=== PATIENT | male | born 1960 | race Caucasian/White ===

== ENCOUNTER 2023-09-08 16:18 | Observation (INO) ==
--- NOTE | 2023-09-08 16:29 | ED Triage Note ---
Date of Service September 08, 2023 Provider in Triage Author: Brody Paulino History of Present Illness This patient was briefly evaluated while in triage. An abbreviated physical exam was performed. This patient is a 63-year-old Male who presents to the ED for evaluation of hard time with vision. Hard time focusing the eyes. Left eye might have a litte pressure. Symptoms since about 3:24pm. Vision seems perfect, just cant focus. Had dizziness and left facial symptoms. Things seem to be improving. Fam hx of stroke. Physical Exam Limited Triage Exam: VITALS: Vitals are noted on the nurse's note and reviewed by myself. Vital si gns stable. GENERAL: Well-developed, well-nourished, white male HEART: Regular rate and rhythm without murmurs gallops or rubs. LUNGS: Clear to auscultation bilaterally without wheezes, rales or rhonchi. No retractions or accessory muscle use. NEURO: Patient was alert and acting questions appropriately Initial orders for labs and / or imaging were placed and patient was placed in the waiting area until a bed is available. Please see further documentation for the full ED course. MDM / Impression Impression Impression: Stroke-like symptom, Diplopia
[2023-09-08] MEDS ORDERED: OPTIRAY 320 125ml IV ONE (16:41)
--- NOTE | 2023-09-08 16:54 | CT Scan Report ---
CT OF THE HEAD WITHOUT CONTRAST CLINICAL HISTORY: neuro deficit, acute stroke suspected COMPARISON STUDY: No previous studies for comparison. TECHNIQUE: Helical axial images of the head were obtained without IV contrast. Automated exposure con trol was utilized for the study. A dose lowering technique was utilized adhering to the principles o f ALARA. FINDINGS: No acute intracranial hemorrhage, midline shift or mass effect is present. The ventricular system is unremarkable. The basal cisterns are patent. No extra-axial collections are present. There are no findings to suggest acute dural sinus thrombosis or acute territorial infarct. No significant calvarial abnormalities are present. Visualized portions of the sinuses and mastoid air cells are homar ar. IMPRESSION: No acute intracranial findings. ACT 112: Negative or not required by law. Electronically signed by: Ahsan Patel M.D. 09/08/2023 4:53 PM
--- NOTE | 2023-09-08 16:57 | CT Scan Report ---
CT ANGIOGRAPHY OF THE NECK WITH CONTRAST CLINICAL HISTORY: neuro deficit, acute stroke suspected COMPARISON STUDY: No previous studies for comparison. Technique: CT angiography of the carotid and vertebral arteries was obtained using Optiray and 3D rec onstruction on an independent workstation. NASCET criteria was utilized. Automated exposure control was utilized for the study. A dose lowering technique was utilized adhering to the principles of ALA RA. CT DOSE: 1375.24 mGy.cm Findings: Visualized portions of the lung apices are unremarkable. There is no cervical lymphadenopat hy. No cervical spine fractures are present. The bilateral common carotid, cervical internal carotid and vertebral arteries are patent. There is mild plaque within the proximal left internal carotid art daisy without stenosis. There is no dissection or aneurysm within the neck. CTA of the head will be rep orted separately. IMPRESSION: No stenosis or dissection within the bilateral common carotid, cervical internal carotid or vertebral arteries. ACT 112: Negative or not required by law. Electronically signed by: Ahsan Patel M.D. 09/08/2023 4:55 PM
--- NOTE | 2023-09-08 17:00 | CT Scan Report ---
CTA ANGIOGRAPHY OF THE HEAD CLINICAL HISTORY: neuro deficit, acute stroke suspected COMPARISON STUDY: No previous studies for comparison. TECHNIQUE: Helical axial images of the head were obtained following uneventful intravenous administr ation of 115 cc of Optiray. Sagittal and coronal reconstructions were viewed as well as maximal inten sity projections on an independent 3-D workstation. Automated exposure control was utilized for the study. A dose lowering technique was utilized adhering to the principles of ALARA. FINDINGS: The bilateral M1, M2, A1 and A2 segments are patent. No vessel occlusion is identified. Pos terior circulation is intact. There are bilateral posterior communicating arteries. Left P1 segment i s diminutive on a congenital basis. Please note that the head CT will be reported separately. Major d ural sinuses appear patent. There is no intracranial aneurysm or dissection. IMPRESSION: No large vessel occlusion. No intracranial aneurysm. ACT 112: Negative or not required by law. Electronically signed by: Ahsan Patel M.D. 09/08/2023 4:57 PM
--- NOTE | 2023-09-08 17:00 | Emergency Department Note ---
Impression & Plan Stroke-like symptom, Diplopia ED Provider Note NAME: GUY PEÑA AGE: 63 SEX: M : 1960 ARRIVES VIA: Walk-In INFORMANT: Patient, ED PROVIDER(S): Mateusz Hair DO CHIEF COMPLAINT: Diplopia HPI: The patient is a 63-year-old male who was made a stroke alert in triage. The patient arrived at the emergency department for an evaluation of diplopia. The patient came in through triage. His significant other states that she did find out about the symptoms and they started at approximately 3:20 PM the patient describes double vision when he looks through both eyes. He describes pressure behind his left eye but no specific headache. He states he feels dizzy and somewhat off balance. The patient states he had a similar sewed 6 months ago. It lasted only seconds and the patient felt better. ROS: See above HPI for pertinent positives & negatives. A total of 10 systems reviewed and were otherwise negative. PAST MEDICAL HISTORY: See Below PAST SURGICAL HISTORY: See Below FAMILY HISTORY: See Below SOCIAL HISTORY: See Below HOME MEDICATIONS: See Below ALLERGIES: See Below VITALS: See Below PHYSICAL EXAMINATION: GENERAL: Patient is awake alert in no acute distress patient is resting comfortably and showing no signs of anxiety EYES: The conjunctivae are clear. The pupils are round and reactive. Extraocular muscles are intact. EARS, NOSE, MOUTH AND THROAT: The nose is without any evidence of any deformity. NECK: The neck is nontender and supple. RESPIRATORY: Normal respiratory effort is noted there is no evidence of wheezing rhonchi or rales CARDIOVASCULAR: Regular rate and rhythm noted there no murmurs rubs or gallops normal S1 normal S2. GASTROINTESTINAL: The abdomen is soft. Abdomen is nontender. MUSCULOSKELETAL/EXTREMITIES: There is no evidence of gross deformity full range of motion is noted in the hips and shoulders. SKIN: There is no obvious evidence of any rash. There are no petechiae, pallor or cyanosis noted. NEUROLOGIC: Patient is awake alert and oriented x3 strength is symmetric patellar reflexes are 2+ bilaterally MEDICAL DECISION MAKING: The patient is a 63-year-old male who presented to the emergency department through triage. The patient was made a stroke alert prior to my evaluation. The patient had an acute onset of diplopia. He also had some degree of a headache behind his left eye. I discussed the patient's laboratory and radiographic studies with him. He was evaluated by the telestroke neurologist. At this time the patient does not appear to have criteria for TN K. He had improvement of his symptoms while he was in the emergency department. I discussed the patient's condition with the telestroke neurologist after her evaluation. At this time it does appear the patient may require further workup. I discussed the patient's condition with the on-call [facility] hospitalist. The patient was treated with aspirin in the emergency department. Triage Nursing notes reviewed. Prior medical records reviewed Vital Signs: reviewed and remarkable for no significant abnormalities Differential diagnosis: Conjunctivitis, trauma, corneal abrasion, hyphema, glaucoma, iritis, corneal ulcer, dendrite, CRAO, CRVO, vitreous detachment, retinal detachment, as well as other pathologies. ER treatment provided: See below Diagnostics interpreted by me: ECG: EKG was obtained in the emergency department. My interpretation is normal sinus rhythm at 75 bpm. There is no ectopy. There is no acute ST segment abnormalities noted. Previous tracing was not available. Cardiac Monitoring: An order was placed for continuous cardiac monitoring. The monitor shows a rate of 65 bpm with sinus rhythm. Laboratory studies: As stated above and show below. Imaging studies: See below. Radiographic imaging was reviewed by myself Consultation(s): I discussed this case with Dr. Maya [facility] COURSE: Procedures: none Critical Care: I have personally spent greater than 40 minutes of critical care time in the direct management of this patient. This includes bedside care, interpretation of diagnostic studies, and testing, discussion with consultants, patient, and family members, and other required patient management activities. This 40 minutes is in excess of all separately billable procedures. Past Med/Surg History Medical History ADHD Allergies Allergies Allergy/AdvReac Type Severity Reaction Status Date / Time No Known Allergies Allergy Verified 09/08/23 16:57 Home Meds Home Medications Medication Instructions Recorded Confirmed aspirin 81 mg tablet,delayed 81 mg PO DAILY 09/08/23 09/08/23 release buspirone 30 mg tablet 30 mg PO BID 09/08/23 09/08/23 dextroamphetamine-amphetamine 30 30 mg PO BID 09/08/23 09/08/23 mg tablet (Adderall) multivitamin 1 tab PO DAILY 09/08/23 09/08/23 Results & Data (ED) Vital Signs Vital Signs - 24 hr 09/08/23 16:25 09/08/23 16:45 09/08/23 17:00 Temperature 36.8 C Temperature Source Temporal Artery Scan Pulse Rate 79 77 71 Pulse Rate from SpO2 Sensor Respiratory Rate 18 16 23 Blood Pressure 127/83 133/87 120/79 Blood Pressure Mean 97 102 92 Pulse Oximetry 99 100 100 Oxygen Delivery Method Room Air Room Air Room Air Sepsis Recent Fever Within 48 Hours No Sepsis New/Unexplained Change in Mental Status No Sepsis Action Taken by Nursing No Action Required 09/08/23 17:01 09/08/23 17:30 09/08/23 18:06 Temperature Temperature Source Pulse Rate 73 66 72 Pulse Rate from SpO2 Sensor Respiratory Rate 18 16 Blood Pressure 129/85 Blood Pressure Mean 99 Pulse Oximetry 100 Oxygen Delivery Method Room Air Sepsis Recent Fever Within 48 Hours Sepsis New/Unexplained Change in Mental Status Sepsis Action Taken by Nursing 09/08/23 18:09 09/08/23 18:09 09/08/23 18:10 Temperature Temperature Source Pulse Rate 60 62 Pulse Rate from SpO2 Sensor 64 62 Respiratory Rate 22 16 Blood Pressure 121/87 Blood Pressure Mean 90 Pulse Oximetry 96 100 Oxygen Delivery Method Sepsis Recent Fever Within 48 Hours Sepsis New/Unexplained Change in Mental Status Sepsis Action Taken by Nursing 09/08/23 18:20 09/08/23 18:30 09/08/23 18:30 Temperature Temperature Source Pulse Rate 67 66 Pulse Rate from SpO2 Sensor 67 Respiratory Rate 18 15 Blood Pressure 133/87 Blood Pressure Mean 92 Pulse Oximetry 97 Oxygen Delivery Method Sepsis Recent Fever Within 48 Hours Sepsis New/Unexplained Change in Mental Status Sepsis Action Taken by Nursing 09/08/23 18:40 09/08/23 18:50 Temperature Temperature Source Pulse Rate 65 65 Pulse Rate from SpO2 Sensor 64 65 Respiratory Rate 18 16 Blood Pressure Blood Pressure Mean Pulse Oximetry 100 100 Oxygen Delivery Method Sepsis Recent Fever Within 48 Hours Sepsis New/Unexplained Change in Mental Status Sepsis Action Taken by Alf Medications Current Medication List: was personally reviewed by me Laboratory Data Attestation: I reviewed the patient's lab results. 09/08/23 16:50 09/08/23 16:50 Lab Results 09/08/23 09/08/23 Range/Units 16:48 16:50 WBC 4.21 L (4.8-10.8) K/ul RBC 4.16 L (4.70-6.10) M/uL Hgb 12.9 L (14.0-18.0) g/dl Hct 39.1 L (42.0-52.0) % MCV 94.0 (80.0-100.0) fL MCH 31.0 (25.0-34.0) pg MCHC 33.0 (32.0-36.0) g/dL RDW Std Deviation 43.2 (36.4-46.3) fL RDW Coeff of Kennedy 12.4 (11.5-14.5) % Plt Count 194 (130-400) K/uL MPV 10.3 (9.4-12.4) fL Immature Gran % (Auto) 0.2 % Neut % (Auto) 45.8 % Lymph % (Auto) 38.5 % Frio % (Auto) 12.6 % Eos % (Auto) 1.9 % Baso % (Auto) 1.0 % Neut # (Auto) 1.93 (1.40-6.50) K/uL Lymph # (Auto) 1.62 (1.20-3.40) K/uL Frio # (Auto) 0.53 (0.11-0.59) K/uL Eos # (Auto) 0.08 (0.00-0.50) K/uL Baso # (Auto) 0.04 (0.00-0.20) K/uL Immature Gran # (Auto) 0.01 (0.01-0.20) K/uL PT 11.9 (9.0-12.0) Seconds INR 1.1 (0.9-1.1) APTT 27 (21-31) Seconds PTT Ratio 1.0 Sodium 137 (136-145) mmol/L Potassium 4.2 (3.5-5.1) mmol/L Chloride 105 (98-107) mmol/L Carbon Dioxide 28 (21-32) mmol/L Anion Gap 4 (3-11) BUN 18 (6-23) mg/dl Creatinine 0.95 (0.6-1.4) mg/dl Est Cr Clr Drug Dosing 80.0 ml/min Est GFR ( Amer) 97.0 ml/min Est GFR (Non-Af Amer) 83.7 ml/min BUN/Creatinine Ratio 18.9 (10-20) Glucose 97 (70-99(Fasting)) mg/dl POC Glucose 95 (70-99) mg/dl Calcium 9.0 (8.6-10.3) mg/dl Magnesium 2.0 (1.7-2.4) mg/dl Total Bilirubin 0.3 (0.2-1.0) mg/dl AST 16 (13-39) U/L ALT 18 (7-52) U/L Alkaline Phosphatase 60 (34-104) U/L Troponin I High Sens 2.6 (0-20) pg/ml Total Protein 6.1 (6.0-8.3) gm/dl Albumin 3.9 (3.4-5.0) gm/dl Globulin 2.2 L (2.5-4.0) gm/dl Albumin/Globulin Ratio 1.8 (0.9-2) Blood Type O Positive Antibody Screen NEGATIVE Administered Medications Discontinued Medications Aspirin (Aspirin Chew 324 Mg) 240 mg PO NOW STA Stop: 09/08/23 18:20 Last Admin: 09/08/23 18:33 Dose: 240 mg Documented By: HAIR Ioversol (Optiray 320 125ml) 115 ml IV ONCE ONE Stop: 09/08/23 16:42 Last Admin: 09/08/23 16:42 Dose: 115 ml Documented By: STEVE Imaging Data Attestation: I personally reviewed and interpreted this imaging study as follows: My Impression: CT of the brain was obtained in the emergency department. My interpretation is no intracranial hemorrhage or mass effect, final report below. 1 view chest x-ray was obtained in the emergency department. My interpretation is no free air or definite infiltrate, final report below. Radiologist's Impression: Head CT 09/08/23 16:30 CT OF THE HEAD WITHOUT CONTRAST CLINICAL HISTORY: neuro deficit, acute stroke suspected COMPARISON STUDY: No previous studies for comparison. TECHNIQUE: Helical axial images of the head were obtained without IV contrast. Automated exposure control was utilized for the study. A dose lowering technique was utilized adhering to the principles of ALARA. FINDINGS: No acute intracranial hemorrhage, midline shift or mass effect is present. The ventricular system is unremarkable. The basal cisterns are patent. No extra-axial collections are present. There are no findings to suggest acute dural sinus thrombosis or acute territorial infarct. No significant calvarial abnormalities are present. Visualized portions of the sinuses and mastoid air cells are clear. IMPRESSION: No acute intracranial findings. ACT 112: Negative or not required by law. Electronically signed by: Ahsan Patel M.D. 09/08/2023 4:53 PM Head CTA 09/08/23 16:30 CTA ANGIOGRAPHY OF THE HEAD CLINICAL HISTORY: neuro deficit, acute stroke suspected COMPARISON STUDY: No previous studies for comparison. TECHNIQUE: Helical axial images of the head were obtained following uneventful intravenous administration of 115 cc of Optiray. Sagittal and coronal reconstructions were viewed as well as maximal intensity projections on an independent 3-D workstation. Automated exposure control was utilized for the study. A dose lowering technique was utilized adhering to the principles of ALARA. FINDINGS: The bilateral M1, M2, A1 and A2 segments are patent. No vessel occlusion is identified. Posterior circulation is intact. There are bilateral posterior communicating arteries. Left P1 segment is diminutive on a congenital basis. Please note that the head CT will be reported separately. Major dural sinuses appear patent. There is no intracranial aneurysm or dissection. IMPRESSION: No large vessel occlusion. No intracranial aneurysm. ACT 112: Negative or not required by law. Electronically signed by: Ahsan Patel M.D. 09/08/2023 4:57 PM Neck CTA 09/08/23 16:30 CT ANGIOGRAPHY OF THE NECK WITH CONTRAST CLINICAL HISTORY: neuro deficit, acute stroke suspected COMPARISON STUDY: No previous studies for comparison. Technique: CT angiography of the carotid and vertebral arteries was obtained using Optiray and 3D reconstruction on an independent workstation. NASCET criteria was utilized. Automated exposure control was utilized for the study. A dose lowering technique was utilized adhering to the principles of ALARA. CT DOSE: 1375.24 mGy.cm Findings: Visualized portions of the lung apices are unremarkable. There is no cervical lymphadenopathy. No cervical spine fractures are present. The bilateral common carotid, cervical internal carotid and vertebral arteries are patent. There is mild plaque within the proximal left internal carotid artery without stenosis. There is no dissection or aneurysm within the neck. CTA of the head will be reported separately. IMPRESSION: No stenosis or dissection within the bilateral common carotid, cervical internal carotid or vertebral arteries. ACT 112: Negative or not required by law. Electronically signed by: Ahsan Patel M.D. 09/08/2023 4:55 PM Discharge Plan Visit Data Chief Complaint: TIA Symptoms ED Provider: Mateusz Hair Discharge Problem: Stroke-like symptom, Diplopia Patient Disposition: Being Evaluated by Hospitalist Forms Stand Alone Forms: [facility] Prescriptions Prescriptions: No Action multivitamin Tablet 1 tab PO DAILY aspirin 81 mg Tablet,Delayed Release (Dr/Ec) 81 mg PO DAILY dextroamphetamine-amphetamine [Adderall] 30 mg Tablet 30 mg PO BID Rx Instructions: administer doses at least 4-6 hours apart buspirone [BuSpar] 30 mg Tablet 30 mg PO BID Referrals Referrals: PCP,NO [Primary Care Provider] -
[2023-09-08 17:05] LABS: Basophils # (auto) 0.04 K/uL (0.00-0.20); Eosinophils # (auto) 0.08 K/uL (0.00-0.50); Eosinophils % (auto) 1.9 %; Hematocrit (blood only) 39.1 % (42.0-52.0); Hemoglobin 12.9 g/dl (14.0-18.0); Immature Granulocytes # (auto) 0.01 K/uL (0.01-0.20); Immature Granulocytes % (auto) 0.2 %; Lymphocytes # (auto) 1.62 K/uL (1.20-3.40); Lymphocytes % (auto) 38.5 %; Mean Platelet Volume 10.3 fL (9.4-12.4); Monocytes # (auto) 0.53 K/uL (0.11-0.59); Monocytes % (auto) 12.6 %; Neutrophils # (auto) 1.93 K/uL (1.40-6.50); Neutrophils % (auto) 45.8 %; Platelet Count 194 K/uL (130-400); RDW Coefficient of Variation 12.4 % (11.5-14.5); RDW Standard Deviation 43.2 fL (36.4-46.3); Red Blood Count 4.16 M/uL (4.70-6.10); White Blood Count 4.21 K/ul (4.8-10.8)
[2023-09-08 17:21] LABS: Albumin Globulin Ratio 1.8 (0.9-2); Albumin Level 3.9 gm/dl (3.4-5.0); BUN Creatinine Ratio 18.9 (10-20); Bilirubin,Total 0.3 mg/dl (0.2-1.0); Est GFR (Non-African American) 83.7 ml/min; Globulin 2.2 gm/dl (2.5-4.0); Potassium 4.2 mmol/L (3.5-5.1); Total Protein 6.1 gm/dl (6.0-8.3)
[2023-09-08 17:27] LABS: Troponin I High Sensitivity 2.6 pg/ml (0-20)
[2023-09-08 18:04] LABS: INR 1.1 (0.9-1.1); Partial Thromboplastin Time 27 Seconds (21-31); Prothrombin Time 11.9 Seconds (9.0-12.0)
[2023-09-08] MEDS ORDERED: ASPIRIN CHEW 324 MG PO STA (18:19)
--- NOTE | 2023-09-08 20:04 | History & Physical Report ---
Date of Service September 08, 2023 Assessment & Plan (1) TIA (transient ischemic attack): Plan: Patient had a recurrence of diplopia. He is not from the area and will follow- up in his hometown. He notes a strong family history of cerebrovascular disease. He himself however does not feel he is elevated risk factors such as diabetes or elevation of his cholesterol. He quit smoking many years ago when he got . But he does have a history of tobacco use in the past Consideration of TIA we will overlap Plavix with aspirin for 21 days. Telestroke may have not realize the patient is on a every day aspirin. Lipid panel will be checked in the morning with A1c and he will be offered atorvastatin. MRI is ordered for overnight Echocardiogram with bubble study. Patient was able to pass a bedside swallow examination for me and diet will be administered. He was queried whether this could be atypical migraine does not feel he had any other issues and has never had history of headaches (2) Anxiety: Plan: Patient on BuSpar 30 twice daily this will be continued. Plan DVT prevention is Lovenox therapy. History of Present Illness Primary Care Provider: NO PCP 63-year-old male driving from [place] through [facility] developed diplopia while driving. Reportedly 6 months prior to similar episode while reading or did diplopia lasted about 30 seconds and then resolved. Patient recently saw his nanofabrication specialist for correction of his reading glasses did not mention a diplopia at that time. Patient has complete resolution of his symptoms in the emergency department. There are no other associated symptoms except for perhaps some altered sensation to the left side of his face. He is dry metacarpal this happened he needed to window shade ring coverer to the road and changed to have his drive. She did not notice any facial drooping or dragging his arm she did not notice any speech related issues but said he may have been slightly confused He is not a history of any migraines. Stroke evaluation in the ER did not recommend any thrombolytic agents. The patient did have relatively unremarkable CT head and CT angiography. Recommendations for antiplatelet agents continue stroke workup including echo with bubble study and have an outpatient ophthalmologic examination if this is all negative. Patient is eddies explained to them and seem to be happy with those results Allergies Allergy/AdvReac Type Severity Reaction Status Date / Time No Known Allergies Allergy Verified 09/08/23 16:57 Home Medications Medication Instructions Recorded Confirmed Type aspirin 81 mg tablet,delayed 81 mg PO DAILY 09/08/23 09/08/23 History release buspirone 30 mg tablet 30 mg PO BID 09/08/23 09/08/23 History dextroamphetamine-amphetamine 30 30 mg PO BID 09/08/23 09/08/23 History mg tablet (Adderall) multivitamin 1 tab PO DAILY 09/08/23 09/08/23 History Past Med/Surg History Medical History ADHD Review of Systems Review of Systems: Mild distress and fatigue no headache, visual changes are described as double vision's like his eyes were crossed but his eyes were not crossed according to his no speech or swallowing issues no chest pain, pressure or palpitations no shortness of breath, cough or wheezes no abdominal pain, nausea or vomiting, diarrhea or constipation no dysuria, hematuria or frequency no focal joint pain or swelling no back pain, CVA tenderness or radicular pain no bruising, bleeding or rashes no focal signs of weakness or numbness or altered sensation no complaints of anxiety or depression.. Physical Exam Physical Exam: The patient appeared well nourished and normally developed. Vital signs as documented. Head exam is normocephalic atraumatic Neck is without JVD, thyromegaly, or carotid bruits. Lungs are clear to auscultation, no focal loss of breath sounds Cardiac exam, Rhythm is regular.. No murmurs, rubs or gallops. Abdominal exam reveals normal bowel sounds, soft non tender, no masses Extremities are nonedematous and both pedal pulses are present Neurologic exam is alert and oriented, no focal loss of strength or sensation Symptoms had resolved upon time I evaluate the patient Skin is without bruises or rashes Psychologically is without concerns for anxiety or depression.. Results & Data Results & Data Vital Signs (Past 12 Hours) Vital Signs Temp Pulse Resp BP Pulse Ox O2 Del Method 09/08/23 18:50 65 16 100 09/08/23 18:40 65 18 100 09/08/23 18:30 66 15 09/08/23 18:30 133/87 09/08/23 18:20 67 18 97 09/08/23 18:10 62 16 100 09/08/23 18:09 60 22 96 09/08/23 18:09 121/87 09/08/23 18:06 72 16 09/08/23 17:30 66 18 129/85 100 Room Air 09/08/23 17:01 73 09/08/23 17:00 71 23 120/79 100 Room Air 09/08/23 16:45 77 16 133/87 100 Room Air 09/08/23 16:25 98.2 F 79 18 127/83 99 Room Air Laboratory Results Reviewed chemistry reviewed CBC reviewed results of CTA and CT head Code Status & VTE Plan VTE Prophylaxis Plan VTE Prophylaxis will be ordered: Yes PG Care Time/CCT Total # of Minutes Spent Total Time Spent with Patient: Total time spent is greater than 50% in coordination of care (as documented) at patient's floor/unit and/or counseling patient: Coding Level of Care Code 43473 INT INP/OBS CARE 2/55MIN Diagnoses TIA (transient ischemic attack) G45.9 Anxiety F41.9
[2023-09-08] MEDS ORDERED: ONDANSETRON INJ 2 MG/ML 2 ML VIAL IV PRN (21:03)
[2023-09-08] MEDS ORDERED: ALUMINUM/MAGNESIUM SUSP 30 ML UDC PO PRN (21:03)
[2023-09-08] MEDS ORDERED: ACETAMINOPHEN 325 MG TAB PO PRN (21:03)
[2023-09-08] MEDS ORDERED: CLOPIDOGREL BISULFATE 75 MG TAB PO ONE (21:03)
[2023-09-08] MEDS: busPIRone 15 MG TAB PO SCH (22:07)
[2023-09-08] MEDS: AMPHETAMINE ASP/SULF/DEXTRAMPH 10 MG TAB PO SCH (22:07)
[2023-09-09 04:29] LABS: Chol HDL Ratio 2.5 (0-5)
[2023-09-09 07:32] LABS: Estimated Average Glucose 117 mg/dl; Hemoglobin A1C 5.7 % (4.5-5.6)
[2023-09-09] MEDS: busPIRone 15 MG TAB PO SCH (08:23)
[2023-09-09] MEDS: AMPHETAMINE ASP/SULF/DEXTRAMPH 10 MG TAB PO SCH (08:23)
[2023-09-09] MEDS ORDERED: CLOPIDOGREL BISULFATE 75 MG TAB PO SCH (09:00)
[2023-09-09] MEDS ORDERED: ASPIRIN 81 MG ECTAB PO SCH (09:00)
[2023-09-09] MEDS ORDERED: ENOXAPARIN INJ 40 MG/0.4 ML SYR SQ SCH (09:00)
[2023-09-09] MEDS ORDERED: MULTIVITAMIN TAB PO SCH (09:00)
[2023-09-09] MEDS ORDERED: ATORVASTATIN 40 MG TAB PO SCH (09:00)
--- NOTE | 2023-09-09 10:26 | XCELERA ---
[id number] [id number]
--- NOTE | 2023-09-09 10:47 | Electrocardiogram Report ---
Test Reason : Blood Pressure : / mmHG Vent. Rate : 075 BPM Atrial Rate : 075 BPM P-R Int : 148 ms QRS Dur : 092 ms QT Int : 380 ms P-R-T Axes : 063 043 060 degrees QTc Int : 424 ms Normal sinus rhythm Normal ECG No previous ECGs available Confirmed by Mateusz Hines ([id number]) on 09/09/2023 10:46:57 AM Referred By: REFERRED SELF Confirmed By:Mateusz Hines
--- NOTE | 2023-09-09 12:38 | Magnetic Resonance Report ---
MRI OF THE BRAIN WITHOUT CONTRAST CLINICAL HISTORY: Diplopia. Evaluate for stroke. COMPARISON STUDY: Head CT and CTA of the head September 08, 2023. TECHNIQUE: Utilizing a 1.5 Glendy magnet and dedicated coil, multiplanar, multiecho imaging of the bra in was performed without IV contrast. FINDINGS: There are no foci of restricted diffusion to suggest acute infarct. No acute intracranial h emorrhage, midline shift or mass effect is present. Ventricular system is unremarkable. Basal cistern s are patent. There are no extra-axial collections. Flow-voids for the major intracranial vessels are present. No intracranial masses are identified on this unenhanced exam. No significant parenchymal s ignal abnormality is present. Calvarial signal is normal. No evidence for sinusitis. No mastoid fluid . IMPRESSION: No acute intracranial findings/ ACT 112: Negative or not required by law. Electronically signed by: Ahsan Patel M.D. 09/09/2023 12:36 PM
--- NOTE | 2023-09-09 14:34 | Discharge Summary ---
Date of Service September 09, 2023 Admission HPI Per Admitting Provider 63-year-old male driving from [place] through [facility] developed diplopia while driving. Reportedly 6 months prior to similar episode while reading or did diplopia lasted about 30 seconds and then resolved. Patient recently saw his histopathologist for correction of his reading glasses did not mention a diplopia at that time. Patient has complete resolution of his symptoms in the emergency department. There are no other associated symptoms except for perhaps some altered sensation to the left side of his face. He is dry metacarpal this happened he needed to lumber puller to the road and changed to have his drive. She did not notice any facial drooping or dragging his arm she did not notice any speech related issues but said he may have been slightly confused He is not a history of any migraines. Stroke evaluation in the ER did not recommend any thrombolytic agents. The patient did have relatively unremarkable CT head and CT angiography. Recommendations for antiplatelet agents continue stroke workup including echo with bubble study and have an outpatient ophthalmologic examination if this is all negative. Patient is eddies explained to them and seem to be happy with those results Admission Exam Per Admitting Provider The patient appeared well nourished and normally developed. Vital signs as documented. Head exam is normocephalic atraumatic Neck is without JVD, thyromegaly, or carotid bruits. Lungs are clear to auscultation, no focal loss of breath sounds Cardiac exam, Rhythm is regular.. No murmurs, rubs or gallops. Abdominal exam reveals normal bowel sounds, soft non tender, no masses Extremities are nonedematous and both pedal pulses are present Neurologic exam is alert and oriented, no focal loss of strength or sensation Symptoms had resolved upon time I evaluate the patient Skin is without bruises or rashes Psychologically is without concerns for anxiety or depression.. Principal Diagnosis TIA (mini-stroke) vs migraine Discharge Exam General: Awake, conversant Heart: S1, S2/regular rate and rhythm, no murmur rubs or gallops Lungs: Clear to auscultation bilaterally. Normal effort Abdomen: Soft/nontender/nondistended. No hepatosplenomegaly Extremities: No clubbing/cyanosis. No edema Behavior: Appropriate, cooperative Discharge Data Allergies Allergy/AdvReac Type Severity Reaction Status Date / Time No Known Allergies Allergy Verified 09/08/23 16:57 Consultations 09/08/23 19:31 ED Decision to Admit Stat Ordered Studies 09/08/23 16:30 CT angio head w con Stat CT angio neck with con Stat CT head/brain wo con Stat 09/09/23 10:47 MRI Brain [MR brain wo con] Routine Hospital Course (1) TIA (transient ischemic attack): Patient had a recurrence of diplopia. He has a strong family history of chronic cerebrovascular disease. However he does not have high risk of CVA himself. Diplopia has resolved MRI negative Echocardiogram negative CTA of the head and neck are negative This could be a TIA or migraine or related to extraocular muscle fatigue because of a long drive He will be treated as if this was a TIA. He was already on a baby aspirin. Plavix has been added for 21 days He has been advised to follow-up with his PCP within 1 week. He may need to be referred to nephrology and/or ophthalmology outpatient A1c unremarkable LDL was only 73 He is being discharged on atorvastatin (2) Anxiety: Patient on BuSpar 30 twice daily this will be continued. Plan Plan to discharge today He has been advised to follow-up with PCP in 1 week Total Time Total Time Spent Total Time Spent (In Minutes): 35 Discharge Plan Discharge Items Patient Disposition: Home - Self-Care Reason For Visit: TIA EVAL Discharge Diagnosis: TIA (mini-stroke) vs migraine Condition on Discharge: Good Activity: Resume your previous activity Non-emergency contact: Primary Care Provider Call non-emergency contact if: you have any medication questions and your symptoms worsen Follow-up/Referrals: Dr. Chong Chavez [Other] ( ) Diet: Heart Healthy Addtl Attending Provider Instructions: Advised that you will need to establish a PCP and need to be seen within 1 week. Advised that you are being discharged on both aspirin and Plavix for 21 days. After 21 days, the Plavix can be discontinued Advised that you are being started on a lipid-lowering agent as well. Pending Studies at Discharge: No Stand-Alone Forms: [facility] [employer] Medications and DC Order Prescriptions: New clopidogrel 75 mg Tablet 75 mg PO QAM 20 Days Qty: 20 0RF atorvastatin 40 mg Tablet 40 mg PO QAM 30 Days Qty: 30 0RF Continued multivitamin Tablet 1 tab PO DAILY aspirin 81 mg Tablet,Delayed Release (Dr/Ec) 81 mg PO DAILY dextroamphetamine-amphetamine [Adderall] 30 mg Tablet 30 mg PO BID Rx Instructions: administer doses at least 4-6 hours apart buspirone 30 mg Tablet 30 mg PO BID Discharge Orders: Discharge Order (Routine); Ordered 09/09/23 Ordered By: Connie Lorenzo Admission Data Admit Date/Time: 09/08/23 18:23 Attending Provider: Connie Lorenzo Admit Provider: Lloyd Reich Primary Care Provider: PCP,NO Other Providers: Lloyd Reich Other Interventions: Discharge Summary Assessment (RN) Last Done: 09/09/23 15:15 Coding Level of Care Code 49893 INP/OBS DISCH >30 MIN Diagnoses TIA (transient ischemic attack) G45.9 Anxiety F41.9
== END 2023-09-09 15:15 | disposition home or self-care (01) ==
LOC: SUATTDRO → EDINP 16:18 → ED 16:18 → EDINP 21:04